=== PATIENT | female | born 1940 | race Two or more races ===

== ENCOUNTER 2016-11-29 07:28 | Emergency (ER) | payer SELFPAY ==
[~2016-11-29] VITALS: Ht 152.4 cm; Wt 59.0 kg
[2016-11-29] VITALS (7 sets, daily range): BP systolic 162–181; BP diastolic 75–83
[2016-11-29] MEDS ORDERED: METFORMIN HCL1000 M1 ORAL (07:45)
[2016-11-29] MEDS ORDERED: Pantoprazole Inj IV ONE (08:00)
[2016-11-29 08:03] LABS: BASOPHILS % (AUTO) 1.1 % (0.0-2.0); EOSINOPHILS % (AUTO) 2.3 % (0.0-3.0); LYMPHOCYTES % (AUTO) 28.7 % (20.0-45.0); MEAN CORPUSCULAR VOLUME 94 FL (80-99); MEAN PLATELET VOLUME 7.6 FL (6.5-10.1); MONOCYTES % (AUTO) 8.5 % (1.0-10.0); NEUTROPHILS % (AUTO) 59.4 % (45.0-75.0); PLATELET COUNT 343 K/UL (150-450); RED BLOOD COUNT 4.26 M/UL (4.20-5.40); RED CELL DISTRIBUTION WIDTH 11.1 % (11.6-14.8); WHITE BLOOD COUNT 7.6 K/UL (4.8-10.8)
[2016-11-29 08:04] LABS: APPEARANCE,URINE CLEAR; KETONES,URINE NEGATIVE (NEGATIVE); LEUKOCYTE ESTERASE ,URINE 1+ (NEGATIVE); NITRITE,URINE NEGATIVE (NEGATIVE); PH,URINE 5 (4.5-8.0); PROTEIN,URINE 2+ (NEGATIVE); UROBILINOGEN,URINE NORMAL MG/DL (0.0-1.0)
[2016-11-29 08:16] LABS: BACTERIA,URINE MODERATE /HPF; SQUAMOUS EPITHELIAL CELL,UR FEW /LPF (NONE/OCC)
[2016-11-29 08:17] LABS: ALANINE AMINOTRANSFERASE 19 U/L (3-33); ALBUMIN/GLOBULIN RATIO 1.1 (1.0-2.7); ANION GAP 14 (5-15); ASPARTATE AMINO TRANSFERASE 19 U/L (5-40); CALCIUM 9.4 mg/dL (8.6-10.2); CARBON DIOXIDE 27 mEQ/L (20-30); CHLORIDE 95 mEQ/L (98-107); CREATININE 0.7 mg/dL (0.5-0.9); HEMOLYSIS 39; LIPASE 34 U/L (< 60); POTASSIUM 4.4 mEQ/L (3.4-4.9); SODIUM 136 mEQ/L (135-145); TOTAL PROTEIN 7.4 g/dL (6.6-8.7)
--- NOTE | 2016-11-29 08:21 | Emergency Room Report ---
History of Present Illness General Chief Complaint: Abdominal Pain Source: Patient Present Illness HPI This patient presents for abdominal pain for the past 2 days. She states pain is in right upper abdomen. She has had this pain previously but has never been evaluated for it. She has had nausea but no vomiting. She denies constipation or diarrhea. She denies fever or chills. She denies dysuria or hematuria. She denies association with meals. She has no other complaints. Allergies: Coded Allergies: No Known Allergies (Unverified , 11/29/16) Patient History Past Medical History: see triage record, DM Social History: Denies: alcohol use, drug use, smoking Reviewed Nursing Documentation: PMH: Agreed, PSxH: Agreed Nursing Documentation-PMH Past Medical History: No History, Except For Hx Diabetes: Yes Review of Systems All Other Systems: negative except mentioned in HPI Physical Exam Vital Signs Date Time Temp Pulse Resp B/P Pulse Ox O2 Delivery O2 Flow Rate FiO2 11/29/16 07:35 98.1 89 16 175/80 97 Room Air Sp02 EP Interpretation: reviewed, normal General Appearance: no apparent distress, alert, GCS 15, non-toxic Head: normocephalic, atraumatic Eyes: bilateral eye PERRL, bilateral eye normal inspection ENT: hearing grossly normal, normal pharynx, no angioedema, normal voice Neck: full range of motion, supple/symm/no masses Respiratory: chest non-tender, lungs clear, normal breath sounds, speaking full sentences Cardiovascular #1: regular rate, rhythm, no edema Gastrointestinal: normal bowel sounds, soft, non-distended, no guarding, no rebound, tenderness - Mild tenderness to palpation in the right upper cord or. Rectal: deferred Musculoskeletal: back normal, normal range of motion, non-tender Neurologic: alert, oriented x3, responsive, motor strength/tone normal, sensory intact, speech normal Psychiatric: judgement/insight normal, memory normal, mood/affect normal, no suicidal/homicidal ideation Skin: normal color, no rash, warm/dry, well hydrated Medical Decision Making Diagnostic Impression: Primary Impression: Urinary retention Additional Impression: Abdominal pain ER Course This patient presented with right upper quadrant abdominal pain. The differential diagnosis included cholecystitis, cholelithiasis, pancreatitis, pyelonephritis and appendicitis. The patient underwent CT of the abdomen and this was primarily unremarkable other than a noted had a hernia in by based umbilical hernia. The bladder wall was found to be slightly thickened. Therefore, I felt that this patient should also have her gallbladder fully assessed so she also underwent ultrasound of the right upper quadrant which showed no significant gallbladder findings. She is found to have a significantly dilated urinary bladder. The urinalysis was slightly contaminated versus an early urinary tract infection. The patient's symptoms and location of her pain was primarily in the right upper quadrant. I suspect the patient may have GERD and this in the be the etiology of her symptoms. Although he and his patient a course of antibiotics and on a PPI. A Tobias catheter was placed with 1500ml output. I will give the patient a course of antibiotics. I am unsure why this patient developed urinary retention. The patient is instructed to followup with the urologist or return here in 3 days for removal of the Tobias catheter. The patient given return precautions and followup instructions. Labs Test 11/29/16 07:50 White Blood Count 7.6 K/UL (4.8-10.8) Red Blood Count 4.26 M/UL (4.20-5.40) Hemoglobin 13.2 G/DL (12.0-16.0) Hematocrit 40.1 % (37.0-47.0) Mean Corpuscular Volume 94 FL (80-99) Mean Corpuscular Hemoglobin 31.0 PG (27.0-31.0) Mean Corpuscular Hemoglobin Concent 33.0 G/DL (32.0-36.0) Red Cell Distribution Width 11.1 % (11.6-14.8) Platelet Count 343 K/UL (150-450) Mean Platelet Volume 7.6 FL (6.5-10.1) Neutrophils (%) (Auto) 59.4 % (45.0-75.0) Lymphocytes (%) (Auto) 28.7 % (20.0-45.0) Monocytes (%) (Auto) 8.5 % (1.0-10.0) Eosinophils (%) (Auto) 2.3 % (0.0-3.0) Basophils (%) (Auto) 1.1 % (0.0-2.0) Urine Color Pale yellow Urine Appearance Clear Urine pH 5 (4.5-8.0) Urine Specific Williamson 1.010 (1.005-1.035) Urine Protein 2+ (NEGATIVE) Urine Glucose (UA) 4+ (NEGATIVE) Urine Ketones Negative (NEGATIVE) Urine Occult Blood 2+ (NEGATIVE) Urine Nitrite Negative (NEGATIVE) Urine Bilirubin Negative (NEGATIVE) Urine Urobilinogen Normal MG/DL (0.0-1.0) Urine Leukocyte Esterase 1+ (NEGATIVE) Urine RBC 2-4 /HPF (0 - 2) Urine WBC 5-10 /HPF (0 - 2) Urine Squamous Epithelial Cells Few /LPF (NONE/OCC) Urine Bacteria Moderate /HPF (NONE) Sodium Level 136 mEQ/L (135-145) Potassium Level 4.4 mEQ/L (3.4-4.9) Chloride Level 95 mEQ/L (98-107) Carbon Dioxide Level 27 mEQ/L (20-30) Anion Gap 14 (5-15) Blood Urea Nitrogen 13 mg/dL (7-23) Creatinine 0.7 mg/dL (0.5-0.9) Estimat Glomerular Filtration Rate mL/min (>60) Glucose Level 402 mg/dL (74-106) Calcium Level 9.4 mg/dL (8.6-10.2) Total Bilirubin 0.2 mg/dL (0.0-1.2) Aspartate Amino Transf (AST/SGOT) 19 U/L (5-40) Alanine Aminotransferase (ALT/SGPT) 19 U/L (3-33) Alkaline Phosphatase 209 U/L (35-104) Total Protein 7.4 g/dL (6.6-8.7) Albumin 3.9 g/dL (3.5-5.2) Globulin 3.5 g/dL Albumin/Globulin Ratio 1.1 (1.0-2.7) Lipase 34 U/L (< 60) CT/MRI/US Diagnostic Results CT/MRI/US Diagnostic Results : Imaging Test Ordered: CT abd/pelvis, US RUQ Impression Gallbladder wall thickening. Possibility of cholecystitis not excluded. Distended urinary bladder. Wide-based umbilical hernia. Hiatal hernia. Ultrasound of the right upper quadrant. Gallbladder is normal. Bladder is significantly distended. Last Vital Signs Date Time Temp Pulse Resp B/P Pulse Ox O2 Delivery O2 Flow Rate FiO2 11/29/16 07:50 98.1 89 16 175/80 97 Room Air Disposition: HOME, SELF-CARE Condition: Improved Referrals: NOT CHOSEN IPA/,REFERRING (PCP) OMID ALFARO D.O. Nov 29, 2016 08:21
[2016-11-29] MEDS ORDERED: cefTRIAXone 1 GM in NS 55 ML IVPB ONE (08:45)
--- NOTE | 2016-11-29 10:06 | Diagnostic Imaging Report ---
Indication: Abdominal pain Technique: Continuous helical transaxial imaging of the abdomen and pelvis was obtained from the lung bases to the pubic symphysis during intravenous contrast administration. Coronal 2-D reformats were also obtained. Study obtained in a Siemens sensation [address] Total Dose length Product (DLP): [address] Dose Index Volume (CTDIvol): 16 mGy Comparison: None Findings: Hiatal hernia is present. There is reticular densities at the lung bases likely subsegmental atelectasis. There is slight thickening of the gallbladder wall. Aorta is calcified. Appendix is normal. Spleen is normal in size. There is no adrenal mass. There is a wide based hernia in the area of the anterior abdominal wall near the umbilicus. Uterus is present and atrophic. Urinary bladder is moderately distended. There is associated mild hydroureter. Impression: Gallbladder wall thickening. Possibility of cholecystitis not excluded. Please correlate clinically. Distended urinary bladder. Minimal hydroureter. Hiatal hernia Atherosclerotic disease Wide based umbilical hernia The CT scanner at [facility] is accredited by the [employer] and the scans are performed using dose optimization techniques as appropriate to a performed exam including Automatic Exposure control.
[2016-11-29] MEDS ORDERED: NITROFURANTOIN100 M2 ORAL (13:32)
--- NOTE | 2016-11-29 14:33 | Diagnostic Imaging Report ---
Indication:Abdominal pain Technique: Grayscale and duplex Doppler imaging of the abdomen performed. Comparison: None Findings: The bladder is markedly distended with a postvoid volume of 982 cc. There is associated mild bilateral hydronephrosis. Small amount of gallbladder sludge is present. Sonographic Juarez's is negative per technologist. The liver, demonstrated portions of pancreas, aorta, IVC, spleen appear unremarkable. CBD is 6 mm. There is no ascites. Portal vein is patent by Doppler. Impression: Marked bladder distention with associated hydronephrosis. Patient unable to empty the bladder. Suggest Tobias catheter placement.
== END 2016-11-29 13:42 | disposition home or self-care (01) ==
LOC: EMR 07:56
DX: R33.9 Retention of urine, unspecified (principal); R10.11 Right upper quadrant pain; R11.0 Nausea; E11.9 Type 2 diabetes mellitus without complications; N13.30 Unspecified hydronephrosis; K44.9 Diaphragmatic hernia without obstruction or gangrene; I70.90 Unspecified atherosclerosis; K42.9 Umbilical hernia without obstruction or gangrene
CPT/HCPCS: 36415; 74177; 76700; 80053; 81003; 82962; 83690; 85025; 87086; 87181; 96374; 96375; 99284; C9113; J0696; J2405; Q9967

== ENCOUNTER 2016-12-02 10:05 | Emergency (ER) | payer SELFPAY ==
[~2016-12-02] VITALS: Ht 152.4 cm; Wt 54.4 kg
[~2016-12-02 10:05] MED LIST: METFORMIN HCL1000 M1 ORAL; NITROFURANTOIN100 M2 ORAL
[2016-12-02 10:14] VITALS: BP 133/77
--- NOTE | 2016-12-02 10:31 | Emergency Room Report ---
History of Present Illness General Chief Complaint: Female Urogenital Problems Source: Patient, Medical Record Present Illness HPI The patient presents to have a Wharton catheter revaluated. She was diagnosed with UTI and abdominal pain with urinary retention on November 29. Her abdomen doesn't hurt anymore but she does have pain where the Wharton catheter is. She was given a prescription for Macrobid and they did not fill the prescription yet. She's not taking the medication yet. No further upper abdominal pain. No fevers, chills, NVD, rashes, chest pain, cough, extremity pain. She is diabetic. This is the note from that visit: This patient presented with right upper quadrant abdominal pain. The differential diagnosis included cholecystitis, cholelithiasis, pancreatitis, pyelonephritis and appendicitis. The patient underwent CT of the abdomen and this was primarily unremarkable other than a noted had a hernia in by based umbilical hernia. The bladder wall was found to be slightly thickened. Therefore, I felt that this patient should also have her gallbladder fully assessed so she also underwent ultrasound of the right upper quadrant which showed no significant gallbladder findings. She is found to have a significantly dilated urinary bladder. The urinalysis was slightly contaminated versus an early urinary tract infection. The patient's symptoms and location of her pain was primarily in the right upper quadrant. I suspect the patient may have GERD and this in the be the etiology of her symptoms. Although he and his patient a course of antibiotics and on a PPI. A Wharton catheter was placed with 1500ml output. I will give the patient a course of antibiotics. I am unsure why this patient developed urinary retention. The patient is instructed to followup with the urologist or return here in 3 days for removal of the Wharton catheter. The patient given return precautions and followup instructions. Allergies: Coded Allergies: No Known Allergies (Unverified , 11/29/16) Patient History Past Medical History: see triage record, old chart reviewed Social History Narrative Visiting from [place] Reviewed Nursing Documentation: PMH: Agreed, PSxH: Agreed Nursing Documentation-PM Past Medical History: No History, Except For Hx Diabetes: Yes Review of Systems All Other Systems: negative except mentioned in HPI Physical Exam Vital Signs Date Time Temp Pulse Resp B/P Pulse Ox O2 Delivery O2 Flow Rate FiO2 12/02/16 10:09 97.9 85 14 133/77 96 Room Air Sp02 EP Interpretation: reviewed, normal General Appearance: well appearing, no apparent distress Head: normocephalic, atraumatic Eyes: bilateral eye PERRL ENT: hearing grossly normal, normal voice, moist mucus membranes Neck: full range of motion, supple Respiratory: no respiratory distress, speaking full sentences Cardiovascular #1: regular rate, rhythm Gastrointestinal: normal inspection, normal bowel sounds, non tender, soft Genitourinary: no CVA tenderness Musculoskeletal: no calf tenderness Neurologic: alert, normal gait, grossly normal Psychiatric: mood/affect normal Skin: no rash Medical Decision Making Diagnostic Impression: Primary Impression: UTI (urinary tract infection) Qualified Codes: N30.00 - Acute cystitis without hematuria ER Course Patient here for eval of wharton. Not start antibiotics yet. I have reviewed the previous visit. The other abdominal pain has resolved. The only pain is from the Wharton. She is given a dose of the Macrobid here. Discussed possible problem removing wharton without treating the UTI. They understand. I am prescribing pyridium. Wharton removed. Patient stable for outpatient observation and treatment. All labs from 11/29 reviewed. Last Vital Signs Date Time Temp Pulse Resp B/P Pulse Ox O2 Delivery O2 Flow Rate FiO2 12/02/16 11:00 97.9 14 133/77 96 Room Air 12/02/16 10:09 85 Status: improved Disposition: HOME, SELF-CARE Condition: Improved Scripts Phenazopyridine Hcl* (PYRIDIUM*) 100 Mg Tablet 100 MG ORAL THREE TIMES A DAY for 3 Days, #9 TAB Prov: Mihir Tamez M.D. 12/02/16 Mihir Tamez M.D. Dec 02, 2016 10:31
[2016-12-02] MEDS ORDERED: PHENAZOPYRIDIN100 MG ORAL (10:32)
[2016-12-02 11:00] VITALS: BP 133/77
== END 2016-12-02 11:04 | disposition home or self-care (01) ==
LOC: EMR 10:48
DX: N39.0 Urinary tract infection, site not specified (principal); E11.9 Type 2 diabetes mellitus without complications
CPT/HCPCS: 99282